=== PATIENT | female | born 1960 | race American Indian/Alaskan Native ===

== ENCOUNTER 2020-12-16 15:35 | Emergency (ER) | payer BC, OTHER ==
[~2020-12-16] VITALS: Ht 165.1 cm; Wt 74.8 kg
[~2020-12-16 15:35] MED LIST: AMPHETAMINE SAL10 MG PO; CALCIUM 600 +1 EA12 PO; CELECOXIB100 MG; DECARA25000 UNIT PO; ESTRADIOL1 MG PO; LEVOTHYROXINE88 MCG PO; TYLENOL WITH C1 EACH PO
--- OUTSIDE RECORDS SUMMARY | 2020-12-16 15:38 | XMS ---
PreManage Notification: NEHA LANDEROS [employer] Diagnostic Technician Events No recent Security Events currently on file [facility] There are no care providers on record at this time. Ila has no Care Guidelines for this patient. Jazmyne VISIT COUNT (12 MO.) 1 LUCIANA Barriga TOTAL 1 NOTE: Visits indicate total known visits. ED/C VISIT TRACKING (12 MO.) 12/16/2020 15:36 [facility] Deng OR TYPE: Emergency COMPLAINT: - COLD SYMPTOMS INPATIENT VISIT TRACKING (12 MO.) No inpatient visits to display in this time frame [email or web address]
[2020-12-16] MEDS ORDERED: SULFASALAZINE500 MG PO (15:45)
[2020-12-16] MEDS ORDERED: ZOLPIDEM TARTRAT5 MG PO (15:45)
[2020-12-16] MEDS ORDERED: VIVELLE-DOT1 EAC1 TD (15:45)
== END 2020-12-16 17:48 | disposition home or self-care (01) ==
LOC: ED 15:35
DX: U07.1 COVID-19 (principal); Z79.899 Other long term (current) drug therapy
CPT/HCPCS: 99282-25; M0245

== ENCOUNTER 2021-08-03 12:30 | Emergency (ER) | payer BC, OTHER ==
[~2021-08-03] VITALS: Ht 165.1 cm; Wt 74.8 kg
[~2021-08-03 12:30] MED LIST changes: +SULFASALAZINE500 MG PO; +VIVELLE-DOT1 EAC1 TD; +ZOLPIDEM TARTRAT5 MG PO
--- OUTSIDE RECORDS SUMMARY | 2021-08-03 15:52 | XMS ---
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 Care History Medical/Surgical 12/17/2020 [facility] - PATIENT IS [facility] ELIGIBLE, \T\middot;\T\nbsp; PLEASE REFER PATIENT TO [facility] FOR NON EMERGENT MEDICAL NEEDS. \T\middot;\T\nbsp; [facility] CAN SEE PATIENTS SAME DAY FOR APTS IF PATIENT CALLS FIRST THING IN THE MORNING. E.D. VISIT COUNT (12 MO.) 2 [facility] TOTAL 2 NOTE: Visits indicate total known visits. ED/UCC VISIT TRACKING (12 MO.) 08/03/2021 12:31 LUCIANA Deng OR TYPE: Emergency COMPLAINT: - FLU SYMPTOMS (INFUSION) 12/16/2020 15:36 LUCIANA Deng OR TYPE: Emergency COMPLAINT: - COLD SYMPTOMS DIAGNOSES: - Cough - COVID-19 - Other terminologist (current) drug therapy INPATIENT VISIT TRACKING (12 MO.) No inpatient visits to display in this time frame [email or web address]
== END 2021-08-03 15:51 | disposition home or self-care (01) ==
LOC: ED 12:30
DX: U07.1 COVID-19 (principal); Z23 Encounter for immunization; Z79.899 Other long term (current) drug therapy
CPT/HCPCS: 99283-25; M0247